=== PATIENT | female | born 1930 | race Caucasian/White ===

== ENCOUNTER 2019-03-17 06:15 | Inpatient (IN) | payer MEDICARE, BC ==
[~2019-03-17] VITALS: Ht 160 cm; Wt 62.0 kg
[~2019-03-17 06:15] MED LIST: AMLO5TAB PO; ASPI-1071 PO; CALC-1197 PO; CHOL100046 PO; EDOX60TA PO; GLUC-133 PO; LEVO75TA PO; METO25TA6 PO; MULT-1085 PO; OMEG1CAP2 PO
[2019-03-17 06:50] LABS: BASOPHILS % (AUTO) 0.6 % (0-1); EOSINOPHILS # (AUTO) 0.2 X10'3 (0-0.9); EOSINOPHILS % (AUTO) 2.9 % (0-6); HEMATOCRIT 40.1 % (35.0-45.0); HEMOGLOBIN 13.3 g/dl (12.0-16.0); LYMPHOCYTES # (AUTO) 0.8 X10'3 (1.1-4.8); MEAN CORPUSCULAR HEMOGLOBIN 30.8 PG (27.0-31.0); MEAN CORPUSCULAR HGB CONC 33.1 g/dL (33.0-36.5); MEAN CORPUSCULAR VOLUME 93.2 FL (78-98); MEAN PLATELET VOLUME 8.8 FL (7.4-10.4); MONOCYTES # (AUTO) 0.4 X10'3 (0-0.9); MONOCYTES % (AUTO) 7.5 % (2-12); NEUTROPHILS # (AUTO) 4.2 X10'3 (1.8-7.7); PLATELET COUNT 252 X10'3 (140-440); RED CELL DISTRIBUTION WIDTH 13.9 % (11.5-14.5); WHITE BLOOD COUNT 5.7 X10'3 (4.5-11.0)
[2019-03-17 07:00] LABS: ALANINE AMINOTRANSFERASE 29 U/L (12-78); ALBUMIN 3.4 G/DL (3.4-5.0); ALBUMIN/GLOBULIN RATIO 0.9 (1.1-1.5); ALKALINE PHOSPHATASE 63 IU/L (46-116); ANION GAP 7 (8-16); ASPARTATE AMINO TRANSFERASE 27 U/L (10-37); BILIRUBIN,TOTAL 0.5 MG/DL (0.1-1.0); BLOOD UREA NITROGEN 26 MG/DL (7-18); BUN/CREATININE RATIO 27.1 (6.6-38.0); CALCIUM 8.7 MG/DL (8.5-10.1); CHLORIDE 106 MMOL/L (99-107); CREATININE 0.96 MG/DL (0.40-0.90); GLUCOSE 100 MG/DL (70-104); POTASSIUM 3.5 MMOL/L (3.5-5.1); SODIUM 142 MMOL/L (135-145); TOTAL CARBON DIOXIDE 29.5 MMOL/L (24-32); TOTAL PROTEIN 7.1 G/DL (6.4-8.2); eGFR 55 ML/MIN
[2019-03-17 07:09] LABS: MAGNESIUM 1.8 MG/DL (1.5-2.4)
[2019-03-17] MEDS ORDERED: aspirin 81mg tab.chew PO ONE (07:15)
--- NOTE | 2019-03-17 07:40 | NUR ---
Neighbor, Latonia [phone], or [phone] Daughter, Michell [phone]
[2019-03-17] MEDS ORDERED: AMLO2.5T2 PO (07:47)
[2019-03-17] MEDS ORDERED: LISI1TAB28 PO (07:47)
--- NOTE | 2019-03-17 07:59 | NUR ---
Spoke to pt's daughter, Michell, on the phone. She is aware of pt's status and states she will call for additional update this afternoon.
[2019-03-17 11:00] VITALS: BP 148/69
[2019-03-17] MEDS ORDERED: potassium CL 10mEq/100ml bag 100 ML IV PRN ×2 (11:00)
[2019-03-17] MEDS ORDERED: acetaminophen 325mg tablet PO PRN ×2 (11:00)
[2019-03-17] MEDS ORDERED: morphine 2 MG/ML inj. syringe IV PRN ×2 (11:00)
[2019-03-17] MEDS ORDERED: HYDROcodone/acetaminophen 10/325mg tab PO PRN (11:00)
[2019-03-17] MEDS ORDERED: potassium Cl 20 mEq SR tablet PO PRN ×2 (11:00)
[2019-03-17] MEDS ORDERED: magnesium 4gm in 100ml NS 100 ML IV PRN (11:00)
[2019-03-17] MEDS ORDERED: ondansetron/PF 4mg/2ml inj IV PRN (11:00)
[2019-03-17] MEDS ORDERED: magnesium Cl slow-release 64mg tablet PO PRN (11:00)
[2019-03-17] MEDS ORDERED: HYDROcodone/acetaminophen 5mg/325mg tablet PO PRN (11:00)
[2019-03-17] MEDS ORDERED: diphenhydrAMINE 25mg capsule PO PRN (11:00)
[2019-03-17] MEDS: K and/or MAG REPLACEMENT MC SCH (11:00)
[2019-03-17] MEDS ORDERED: magnesium 2GM in 50ml NS 50 ML IV PRN (11:00)
[2019-03-17] MEDS ORDERED: mag hydrox/Alum hydrox/simeth 30ml oral suspension PO PRN (11:00)
[2019-03-17] MEDS ORDERED: magnesium hydroxide 30ml (MOM) UD suspension PO PRN (11:00)
[2019-03-17] MEDS: normal saline 1000ml 1,000 ML IV SCH ×2 (12:55→21:23)
[2019-03-17 15:00] VITALS: BP 151/63
[2019-03-17] MEDS ORDERED: heparin 10,000 units/1 ML INJ IV ONE (17:30)
[2019-03-17] MEDS ORDERED: heparin 10,000 units/1 ML INJ IV PRN (17:30)
[2019-03-17] MEDS: heparin 25,000 UNIT/250ml bag 250 ML IV SCH ×2 (17:49→21:32)
[2019-03-17 18:00] VITALS: BP 167/68
--- NOTE | 2019-03-17 18:00 | NUR ---
Problems reprioritized. Patient report given, questions answered & plan of care reviewed with SIMEON SALAS.
[2019-03-17 18:55] LABS: BASOPHILS % (AUTO) 0.9 % (0-1); EOSINOPHILS # (AUTO) 0.1 X10'3 (0-0.9); EOSINOPHILS % (AUTO) 2.6 % (0-6); HEMATOCRIT 39.3 % (35.0-45.0); HEMOGLOBIN 13.1 g/dl (12.0-16.0); LYMPHOCYTES # (AUTO) 1.3 X10'3 (1.1-4.8); LYMPHOCYTES % (AUTO) 24.4 % (21-51); MEAN CORPUSCULAR HEMOGLOBIN 30.9 PG (27.0-31.0); MEAN CORPUSCULAR HGB CONC 33.2 g/dL (33.0-36.5); MEAN CORPUSCULAR VOLUME 93.2 FL (78-98); MEAN PLATELET VOLUME 9.2 FL (7.4-10.4); MONOCYTES # (AUTO) 0.4 X10'3 (0-0.9); MONOCYTES % (AUTO) 7.4 % (2-12); NEUTROPHILS # (AUTO) 3.6 X10'3 (1.8-7.7); NEUTROPHILS % (AUTO) 64.7 % (42-75); PLATELET COUNT 240 X10'3 (140-440); RED BLOOD COUNT 4.22 X10'6 (4.20-5.60); RED CELL DISTRIBUTION WIDTH 13.7 % (11.5-14.5); WHITE BLOOD COUNT 5.5 X10'3 (4.5-11.0)
--- NOTE | 2019-03-17 18:59 | NUR ---
Patient in room PCU 3028. I have received report from Tasha HENDRIX and had the opportunity to ask questions and assume patient care. Patient resting, declined additional dinner. Will continue to monitor.
[2019-03-17 19:27] LABS: PARTIAL THROMBOPLASTIN TIME 122 SECONDS (22-32)
[2019-03-17] MEDS: metoprolol tartrate 25mg tablet PO SCH (20:00)
--- NOTE | 2019-03-17 20:07 | NUR ---
Notified Dr. Owusu that the patient has lopressor due at this time but heart rate is 50 BP is 169/60. Requested alternative medication states not needed at this time. Re-iterated SBP 169, Dr. Owusu states okay. Will continue to monitor.
[2019-03-17 20:24] LABS: CLARITY,URINE CLOUDY (Clear); COLOR,URINE YELLOW (Yellow); GLUCOSE, URINE NEGATIVE (Neg); KETONES,URINE NEGATIVE (Neg); LEUKOCYTE ESTERASE ,URINE LARGE (Neg); NITRITES, URINE POSITIVE (Neg); OCCULT BLOOD,URINE SMALL (Neg); PROTEIN,URINE NEGATIVE (Neg); UROBILINOGEN,URINE 0.2 E.U/dL (0.2-1.0)
[2019-03-17 20:25] LABS: UA COLLECTION TYPE CLN CATCH MIDSTREAM
[2019-03-17 20:31] LABS: BACTERIA,URINE 1+ /HPF (Neg); MUCUS STRANDS NONE SEEN /LPF (Neg); RBC,URINE 0-2 /HPF (0-2); SQUAMOUS EPITHELIAL CELL,UR MODERATE /LPF (FEW); WBC,URINE TNTC /HPF (0-4)
[2019-03-17] MEDS ORDERED: temazepam 15mg capsule PO PRN (21:00)
[2019-03-17 22:00] VITALS: BP_SYST 127; BP_SYST 159; BP_SYST 160; BP_DIAS 58; BP_DIAS 61; BP_DIAS 76
[2019-03-18] MEDS: heparin 25,000 UNIT/250ml bag 250 ML IV SCH (00:29)
[2019-03-18 02:30] VITALS: BP 141/72
[2019-03-18 06:00] VITALS: BP 145/56
--- NOTE | 2019-03-18 06:15 | NUR ---
Patient in room PCU 3028. I have received report from SIMEON Boyd and had the opportunity to ask questions and assume patient care. Patient states that she "can't breathe". VS 66, 16, 98% on room air, 112/63. Patient appears very anxious, states she has hx of anxiety. EKG done and taken to ER by charge nurse who maintained contact with Dr. Manzanares. No new orders received and patients symptoms resolved.
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
--- NOTE | 2019-03-18 06:42 | NUR ---
Problems reprioritized. Patient report given, questions answered & plan of care reviewed with Мария HENDRIX. Patient stating that she can not breathe, notified charge, EKG obtained. Claudy HENDRIX present and aware that this is a change from baseline.
[2019-03-18 07:02] LABS: BASOPHILS # (AUTO) 0.1 X10'3 (0-0.2); EOSINOPHILS # (AUTO) 0.2 X10'3 (0-0.9); EOSINOPHILS % (AUTO) 3.3 % (0-6); HEMATOCRIT 37.2 % (35.0-45.0); HEMOGLOBIN 12.5 g/dl (12.0-16.0); LYMPHOCYTES # (AUTO) 1.3 X10'3 (1.1-4.8); LYMPHOCYTES % (AUTO) 23.1 % (21-51); MEAN CORPUSCULAR HEMOGLOBIN 31.7 PG (27.0-31.0); MEAN CORPUSCULAR HGB CONC 33.7 g/dL (33.0-36.5); MEAN CORPUSCULAR VOLUME 93.9 FL (78-98); MEAN PLATELET VOLUME 9.5 FL (7.4-10.4); MONOCYTES # (AUTO) 0.4 X10'3 (0-0.9); MONOCYTES % (AUTO) 6.6 % (2-12); NEUTROPHILS # (AUTO) 3.8 X10'3 (1.8-7.7); PLATELET COUNT 228 X10'3 (140-440); RED BLOOD COUNT 3.96 X10'6 (4.20-5.60); RED CELL DISTRIBUTION WIDTH 13.6 % (11.5-14.5); WHITE BLOOD COUNT 5.7 X10'3 (4.5-11.0)
[2019-03-18 07:04] LABS: ALANINE AMINOTRANSFERASE 21 U/L (12-78); ALBUMIN/GLOBULIN RATIO 0.9 (1.1-1.5); ALKALINE PHOSPHATASE 55 IU/L (46-116); ANION GAP 8 (8-16); ASPARTATE AMINO TRANSFERASE 19 U/L (10-37); BILIRUBIN,TOTAL 0.6 MG/DL (0.1-1.0); BLOOD UREA NITROGEN 15 MG/DL (7-18); CALCIUM 8.4 MG/DL (8.5-10.1); CHLORIDE 109 MMOL/L (99-107); CHOL/HDL RATIO 2.2 (0.00-4.99); CHOLESTEROL 144 MG/DL (0-200); CREATININE 0.75 MG/DL (0.40-0.90); GLUCOSE 94 MG/DL (70-104); HDL CHOLESTEROL 66 MG/DL (35-60); LDL CHOLESTEROL 78 MG/DL (50-100); MAGNESIUM 1.6 MG/DL (1.5-2.4); PHOSPHORUS 2.5 MG/DL (2.3-4.5); POTASSIUM 3.6 MMOL/L (3.5-5.1); SODIUM 143 MMOL/L (135-145); TOTAL CARBON DIOXIDE 26.2 MMOL/L (24-32); TOTAL PROTEIN 6.3 G/DL (6.4-8.2); TRIGLYCERIDES 51 MG/DL (20-135); TROPONIN I 0.08 NG/ML (0.0-0.05); eGFR 73 ML/MIN
[2019-03-18] MEDS ORDERED: levoTHYROXINE 75mcg tablet PO SCH (07:30)
[2019-03-18] MEDS: normal saline 1000ml 1,000 ML IV SCH (07:40)
[2019-03-18 08:00] VITALS: BP 144/76
[2019-03-18] MEDS ORDERED: GLUCOSAMINE PO SCH (08:00)
[2019-03-18] MEDS ORDERED: calcium carbonate/vitamin D3 tablet PO SCH (08:00)
[2019-03-18] MEDS ORDERED: EDOXABAN TOSYLATE 60 MG PO SCH (08:00)
[2019-03-18] MEDS ORDERED: OMEGA-3/DHA/EPA/FISH OIL 1 EACH CAPSULE.DR PO SCH (08:00)
[2019-03-18] MEDS ORDERED: HYDROchlorothiazide 12.5mg capsule PO SCH (08:00)
[2019-03-18] MEDS ORDERED: lisinopril 20mg tablet PO SCH (08:00)
[2019-03-18] MEDS ORDERED: amLODIPine 2.5mg tablet PO SCH (08:00)
[2019-03-18] MEDS ORDERED: CHONDROITIN PO SCH (08:00)
[2019-03-18] MEDS: K and/or MAG REPLACEMENT MC SCH (08:00)
[2019-03-18 08:02] VITALS: BP 140/66
[2019-03-18 08:05] VITALS: BP 142/68
[2019-03-18] MEDS: metoprolol tartrate 25mg tablet PO SCH (08:15)
[2019-03-18 11:00] VITALS: BP 129/63
[2019-03-18] MEDS ORDERED: AMLO2.5T5 PO (11:15)
--- NOTE | 2019-03-18 13:11 | NUR ---
Malnutrition consult: Pt seen at bedside reports low appetite which is evident with documented 0% PO intake x three meals. Upon further discussion reports good appetite at home and states her usual meal pattern is two meals a day and states that she was having difficulty with meals here d/t being unable to cut the meat and states she ate what she was able to. Pt reports wt loss of 6 lbs that occurred over several months with UBW 125-130 lbs that went up to 150 lbs however per documented wt hx patient's UBW appears to be 138-145 lbs. Pt with no decrease in muscle strength and no edema. Pt currently does not meet criteria for malnutrition. Pt pending discharge. Will continue to follow. Addendum: 03/18/19 at [address] Amended: Links added.
--- NOTE | 2019-03-18 14:00 | NUR ---
Returned from lunch to find patient gone with her belongings. IV had been dc'd, tele dc'd. Instructions were reviewed and packet received packet.
[2019-03-19] MEDS ORDERED: amLODIPine 2.5mg tablet PO SCH (08:00)
[2019-03-19] MEDS ORDERED: CEFD300C3 PO (17:26)
== END 2019-03-18 13:55 | disposition home or self-care (01) | DRG 281 ==
LOC: ER 06:16 → PCU 3S 09:23
PROVIDERS: ADMIT Emergency Medicine; ATTEND Family Medicine
DX: I21.A1 Myocardial infarction type 2 (principal); N39.0 Urinary tract infection, site not specified; C25.9 Malignant neoplasm of pancreas, unspecified; I48.91 Unspecified atrial fibrillation; F41.9 Anxiety disorder, unspecified; I10 Essential (primary) hypertension; I25.10 Atherosclerotic heart disease of native coronary artery without angina pectoris; Z95.5 Presence of coronary angioplasty implant and graft; I25.2 Old myocardial infarction; Z80.8 Family history of malignant neoplasm of other organs or systems; Z82.49 Family history of ischemic heart disease and other diseases of the circulatory system; Z87.891 Personal history of nicotine dependence; Z86.73 Personal history of transient ischemic attack (TIA), and cerebral infarction without residual deficits; Z79.82 Long term (current) use of aspirin
CPT/HCPCS: 36415; 71045; 80053; 80061; 81001; 83036; 83735; 83880; 84100; 84443; 84484; 85025; 85610; 85730; 87077; 87081; 87088; 87186; 93005; 97116; 97161; 97530; 99285; G0378; J1644; J7030

== ENCOUNTER 2019-03-20 15:36 | Emergency (ER) | payer MEDICARE, BC ==
[~2019-03-20] VITALS: Ht 147.3 cm; Wt 60.0 kg
[~2019-03-20 15:36] MED LIST changes: +AMLO2.5T5 PO; -AMLO5TAB PO; -ASPI-1071 PO; +CEFD300C3 PO; -CHOL100046 PO; +LISI1TAB28 PO; -MULT-1085 PO
[2019-03-20] MEDS ORDERED: LORazepam 2 mg/ml vial IV ONE ×2 (16:10→17:55)
[2019-03-20 16:37] LABS: BASOPHILS % (AUTO) 0.8 % (0-1); EOSINOPHILS # (AUTO) 0.1 X10'3 (0-0.9); EOSINOPHILS % (AUTO) 1.7 % (0-6); HEMATOCRIT 39.8 % (35.0-45.0); HEMOGLOBIN 13.2 g/dl (12.0-16.0); LYMPHOCYTES # (AUTO) 1.1 X10'3 (1.1-4.8); LYMPHOCYTES % (AUTO) 19.1 % (21-51); MEAN CORPUSCULAR HGB CONC 33.2 g/dL (33.0-36.5); MEAN CORPUSCULAR VOLUME 93.4 FL (78-98); MEAN PLATELET VOLUME 9.1 FL (7.4-10.4); MONOCYTES # (AUTO) 0.5 X10'3 (0-0.9); MONOCYTES % (AUTO) 8.2 % (2-12); NEUTROPHILS # (AUTO) 4.1 X10'3 (1.8-7.7); NEUTROPHILS % (AUTO) 70.2 % (42-75); PLATELET COUNT 237 X10'3 (140-440); RED BLOOD COUNT 4.26 X10'6 (4.20-5.60); RED CELL DISTRIBUTION WIDTH 13.3 % (11.5-14.5); WHITE BLOOD COUNT 5.9 X10'3 (4.5-11.0)
[2019-03-20 16:43] LABS: ALANINE AMINOTRANSFERASE 24 U/L (12-78); ALBUMIN 3.6 G/DL (3.4-5.0); ALKALINE PHOSPHATASE 64 IU/L (46-116); ANION GAP 10 (8-16); ASPARTATE AMINO TRANSFERASE 22 U/L (10-37); BILIRUBIN,TOTAL 0.6 MG/DL (0.1-1.0); BLOOD UREA NITROGEN 15 MG/DL (7-18); CALCIUM 9.5 MG/DL (8.5-10.1); CHLORIDE 104 MMOL/L (99-107); CREATININE 0.75 MG/DL (0.40-0.90); GLUCOSE 95 MG/DL (70-104); POTASSIUM 3.6 MMOL/L (3.5-5.1); SODIUM 140 MMOL/L (135-145); TOTAL CARBON DIOXIDE 26.5 MMOL/L (24-32); TOTAL PROTEIN 7.3 G/DL (6.4-8.2); eGFR 73 ML/MIN
[2019-03-20 16:51] LABS: MAGNESIUM 1.6 MG/DL (1.5-2.4)
[2019-03-20 17:07] LABS: CLARITY,URINE CLEAR (Clear); COLOR,URINE YELLOW (Yellow); GLUCOSE, URINE NEGATIVE (Neg); KETONES,URINE NEGATIVE (Neg); LEUKOCYTE ESTERASE ,URINE NEGATIVE (Neg); NITRITES, URINE NEGATIVE (Neg); OCCULT BLOOD,URINE NEGATIVE (Neg); PROTEIN,URINE NEGATIVE (Neg); UROBILINOGEN,URINE 0.2 E.U/dL (0.2-1.0)
[2019-03-20 17:08] LABS: UA COLLECTION TYPE URINAL
[2019-03-20 18:14] VITALS: BP 151/81
== END 2019-03-20 18:16 | disposition home or self-care (01) ==
LOC: ER 15:37
DX: R53.1 Weakness (principal); R55 Syncope and collapse; R07.89 Other chest pain; R06.02 Shortness of breath; R06.00 Dyspnea, unspecified; I48.91 Unspecified atrial fibrillation; I10 Essential (primary) hypertension; I25.2 Old myocardial infarction; Z98.61 Coronary angioplasty status; Z88.8 Allergy status to other drugs, medicaments and biological substances; Z79.82 Long term (current) use of aspirin; Z79.899 Other long term (current) drug therapy
CPT/HCPCS: 36415; 71045; 80053; 81003; 83735; 83880; 84484; 85025; 93005; 96374; 96376; 99284; J2060